=== PATIENT | male | born 1995 | race Two or more races ===

== ENCOUNTER 2024-10-22 10:20 | Day surgery (SDC) | payer BC, MEDICAID, SELFPAY ==
[2024-10-21 11:19] VITALS: BMI 38.4
[2024-10-21 12:05] LABS: Anion Gap 8 (7-16); BUN/Creatinine Ratio 11 Ratio (12-20); Blood Urea Nitrogen 11 mg/dL (9-23); Calcium 9.6 mg/dL (8.3-10.6); Chloride 107 mMol/L (98-107); Glucose 98 mg/dL (74-106); Osmolality,Calculated 282 (275-295); Potassium 4.1 mMol/L (3.4-5.1); Sodium 142 mMol/L (136-145); eGFR > 60 See Note
[2024-10-21 12:09] LABS: Basophils % (Auto) 1 % (0-2.5); Eosinophils # (Auto) 0.6 Thou/mm3 (0.0-0.5); Eosinophils % (Auto) 10 % (0-10); Hematocrit 43.5 % (41.0-53.0); Hemoglobin 14.7 g/dL (13.5-16.0); Immature Granulocytes % (Auto) 1 % (0-0); Immature Granulocytes Auto 0.03 Thou/mm3 (0.00-0.00); Lymphocytes # (Auto) 3.2 Thou/mm3 (1.0-4.8); Lymphocytes % (Auto) 49 % (10-50); Mean Corpuscular HGB Conc 33.8 g/dl (31.0-37.0); Mean Corpuscular Volume 89 fL (80-100); Monocytes # (Auto) 0.6 Thou/mm3 (0.0-0.8); Monocytes % (Auto) 9 % (0-12); Neutrophils % (Auto) 31 % (37-80); Nucleated Red Blood Cell % 0 /100 WBC (0); Platelet Count 261 Thou/mm3 (140-440); RDW Standard Deviation 39.5 fL (35.1-43.9); White Blood Count 6.5 Thou/mm3 (3.8-10.6)
--- NOTE | 2024-10-21 17:07 | ESHP_ITS ---
RE: LEEANN SHAFFER : 1995 DATE OF ADMISSION: 10/21/2024 HISTORY OF PRESENT ILLNESS: Leeann Shaffer, a 29-year-old male who was referred to me with a history of phimosis. This has been going on for a few months. His hemoglobin A1c is 5.6 and his blood glucose is 92. PAST SURGICAL HISTORY: Tonsillectomy. CURRENT MEDICATIONS: He is no on any medication. PAST MEDICAL HISTORY: There is no history of diabetes mellitus. No history of hypertension. SOCIAL HISTORY: He has one child. ALLERGIES: HE IS ALLERGIC TO PENICILLIN, WHICH CAUSES RASH. PHYSICAL EXAMINATION: VITALS SIGNS: The patient weighs 285 g. HE ENT: Normal. NECK: Supple. LUNGS: Clear. CARDIOVASCULAR: Heart sounds are normal. ABDOMEN: Soft. EXTREMITIES: Normal. GENITOURINARY: Phallus is normal. Phallus reveals tight phimosis. Testes are down in the scrotum. IMPRESSION: Tight phimosis. PLAN: Circumcision. Planned procedure risks and complications have been discussed with the patient. The patient has understood them and agreed to proceed. DT: 14:57:16 TT: 17:05:00 Ref: [id number] - TID: [id number]
[2024-10-22] VITALS (10 sets, daily range): BP systolic 109–147; BP diastolic 62–80; PULSE 71–90; RESP 12–20; TEMP 36.4–36.8; O2SAT 96–99; BMI 37.5
--- NOTE | 2024-10-22 12:15 | SUR.PHASEI ---
1211 patient arrived to recovery room s/p circumcison, dressing to penis dry with no bleeding, report received from Kelsy ROMERO and Dr. Loera.
--- NOTE | 2024-10-22 12:33 | SUR.PHASEI ---
1230 report given to viviane Velez RN
--- NOTE | 2024-10-22 12:49 | SUR.PHASEI ---
1230: Assumed care. Pt resting quietly with no complaints voiced. VS stable. Resp even, unlabored. Dressing to penis dry, clean, intact.
--- NOTE | 2024-10-22 13:25 | SUR.PHASEII ---
1300: Pt more awake, alert. VS stable. Dressing remains dry, clean, intact. Denies pain. Sitting up tolerating po fluids with no difficulty swallowing and no n/v. 1322: Pt fully awake, oriented x3. Pt dressed and assisted to transport chair. Ambulation steady. Awaiting transportation.
--- NOTE | 2024-10-22 13:55 | SUR.PHASEII ---
1350: Transportation available. Pt and stated understanding of discharge instructions. Pt also instructed to pickle sorter his prescriptions and skin ointment at [facility]. Pt discharged from [facility] in stable condition.
--- NOTE | 2024-10-22 19:50 | ESOP_ITS ---
RE: LEEANN CHEN : 1995 DATE OF OPERATION: 10/22/2024 PREOPERATIVE DIAGNOSIS: Tight phimosis. POSTOPERATIVE DIAGNOSIS: Tight phimosis. PROCEDURE PERFORMED: Circumcision. ANESTHESIA: General by Dr. Loera. INDICATION: The patient is a 29-year-old male with tight phimosis. He does not have any history of diabetes mellitus. The patient was now scheduled to have circumcision. Planned procedure, risks, and complications have been discussed with the patient. The patient understood them and agreed to proceed. DESCRIPTION OF PROCEDURE: After the patient was brought to the operating table under adequate general anesthesia given by Dr. Loera, he was placed in the supine position and parts were prepped and draped in the usual fashion. Circumcision was then carried out in a standard fashion by excising the foreskin in a circumferential manner at the level of owens glandis. Complete hemostasis was obtained by using electrocoagulation. Skin was reapproximated back by placing interrupted sutures of 3-0 chromic catgut all around. Local anesthetic was injected at the base of the penis. A sterile dressing was then applied. The patient was then transferred to the recovery room in a satisfactory condition having tolerated the entire procedure well. Sponge count and needle count at the end of the procedure was found to be correct. Estimated blood loss was approximately 5 mL. DT: 12:50:37 TT: 19:49:00 Ref: [id number] - TID: [id number]
== END 2024-10-22 13:52 | disposition home or self-care (01) ==
PROVIDERS: PCP Physician Assistant; Referring Provider Surgery; Visit Provider Surgery
PROC: (CPT 54161; principal; 2024-10-22 12:45)
DX: N47.1 Phimosis (principal); E11.9 Type 2 diabetes mellitus without complications
CPT/HCPCS: 54161; 36415; 80048; 85025; A4217; A4649; J0131; J0690; J1100; J1885; J2250; J2405; J2704; J3010; J3490; A9270; J0665